=== PATIENT | male | born 1960 | race Caucasian/White ===

== ENCOUNTER 2016-08-26 13:33 | Outpatient (CLI) | payer OTHER | END 2016-08-26 13:34 | disposition home or self-care (01) | DX: G47.33 Obstructive sleep apnea (adult) (pediatric) (principal) ==

== ENCOUNTER 2017-09-16 10:13 | Outpatient (CLI) | payer OTHER | END 2017-09-16 10:14 | disposition home or self-care (01) | LOC: SC 10:13 | PROVIDERS: ATTEND Internal Medicine Pulmonary Disease | DX: G47.33 Obstructive sleep apnea (adult) (pediatric) (principal) | CPT/HCPCS: 99212; 99213 ==

== ENCOUNTER 2018-09-28 15:43 | Outpatient (CLI) | payer OTHER | END 2018-09-28 15:44 | disposition home or self-care (01) | LOC: SC 15:43 | PROVIDERS: ATTEND Nurse Practitioner Family | DX: G47.33 Obstructive sleep apnea (adult) (pediatric) (principal); G47.00 Insomnia, unspecified | CPT/HCPCS: 99212; 99214 ==

== ENCOUNTER 2019-11-15 15:07 | Outpatient (CLI) | payer OTHER ==
--- NOTE | 2019-11-15 16:01 | SLEEP CARE CONSULTATION ---
Information from patient questionnaire entered by Karlene Mosquera. I have reviewed and concur with the information entered by Karlene Mosquera. This document represents the service I personally performed and the decisions made by me, Raimundo Plata MD, [facility]. History of Present Illness Service Date and Time: 11/15/2019 1507 Previous diagnosis: Mild, Obstructive Sleep Apnea-Hypopnea Syndrome AHI: 11 (in 2006) Reason for follow up: annual (last seen 2018) Equipment type: CPAP Equipment obtained from: [employer] Mask style: Nasal Mask brand: Respironics Prior sleep studies: Yes Year and Where: 2006 - [facility] in [place], [place] Type of Sleep Study: Polysomnography HPI additional information: Mr. Finn is here for an annual follow up of the CPAP therapy. He continues to use his autoCPAP every night and all night. He has perfect compliance. He wears a Respironics DreamWear nasal cushion mask. He gets his supplies from [employer]. He is comfortable with the pressure. He reports significant improvement on the treatment. He would like a traveling unit for trips. CPAP Compliance Data - Data Reviewed with Patient Average duration of nightly device use: 5.2 Compliance rate %: 99.4 (180 days) Current pressure setting (cmH2O): 7-10 Humidity settin Heated hose settin Average residual AHI: 2.4 Average large leak: 12 sec Subjective Patient concerns: reports: nasal congestion Initial [place] Sleepiness Scale score: 0 (in 2016) Current [place] Sleepiness Scale score: 3 Allergies and Home Medications Drug allergies reviewed: Yes Home medication list reviewed: Yes Physical Exam Vital signs obtained and entered by: deferred due to the COVID-19 pandemic Height: 5 ft 8 in Impression and Plan IMPRESSION: 1. Obstructive Sleep Apnea-Hypopnea Syndrome, mild, with the patient doing well on nasal CPAP therapy. He has excellent compliance and significant clinical improvement. The current pressure appears effective and comfortable. His mask fits well. Overall, he is very satisfied with treatment and plans to continue with it long-term. No adjustment is necessary today. PLAN: 1. Continue with autoCPAP set at 7 - 10 cmH2O. 2. Try to lose weight 3. Try ResMed N30i mask 4. Prescription made for a traveling CPAP set at the same pressure range. 4. Return in one year for follow up or earlier if there is any problem with the treatment. Visit Type: In Office Time Spent with Patient (minutes): 15 Provider Statement: I spent 100% of the Face to Face Visit with the patient with greater than 50% spent counseling the patient and coordination of care.
== END 2019-11-15 15:08 | disposition home or self-care (01) ==
LOC: SC 15:07
PROVIDERS: ATTEND Internal Medicine Pulmonary Disease
DX: G47.33 Obstructive sleep apnea (adult) (pediatric) (principal)
CPT/HCPCS: 99212; 99213

== ENCOUNTER 2020-05-01 13:17 | Outpatient (CLI) | payer OTHER ==
[2020-05-01] MEDS ORDERED: GADOBUTROL 7.5 MMOL/7.5 ML VIAL ONE (13:38)
[2020-05-01] MEDS ORDERED: BUFFERED LIDOCAINE 10 ML SYRINGE ONE (13:38)
[2020-05-01] MEDS ORDERED: BUFFERED LIDOCAINE 10 ML SYRINGE IU ONE (14:59)
[2020-05-01] MEDS ORDERED: iohexoL-240 10 ML VIAL IVP ONE (15:02)
[2020-05-01] MEDS ORDERED: GADOBUTROL 7.5 MMOL/7.5 ML VIAL IVP ONE (15:03)
--- NOTE | 2020-05-01 16:41 | XRAY Report ---
PROCEDURE: Arthrogram Needle Placement INDICATIONS: IMCOMPLETE ROTATOR CUFF TEAR OR RUPTURE LT SH CONTRAST: CONTRAST: Omipaque 2cc, FLUOROSCOPY TIME: FLUORO TIME: 14 sec and NUMBER IMAGES: 3 TECHNIQUE: The indications, alternatives, benefits, risks, and complications of the procedure were explained to the patient. Written informed consent was obtained and placed in the chart. The shoulder was examin ed fluoroscopically and a site for needle placement chosen for entry into the glenohumeral joint from an anterior approach. The skin was prepped and draped in the usual fashion, and 1% lidocaine infilt rated from skin down to joint capsule. A spinal needle was inserted into the glenohumeral joint, and a small amount of iodinated contrast media injected to confirm intra-articular placement of the need le tip. This was followed by approximately 12 mL dilute solution of a gadolinium containing MR contr ast agent. The needle was removed and a dressing was applied. The patient was given postprocedural instructions and sent to the MR suite for MR imaging. FINDINGS: A single fluoroscopic spot image demonstrates intra-articular location of injected iodinated contrast . IMPRESSION: Successful fluoroscopically guided administration of dilute Gadolinium solution into the shoulder corinna nt for MR arthrogram. Reviewed by: Zahraa Babcock MD on 05/01/2020 4:40 PM PST Approved by: Zahraa Babcock MD on 05/01/2020 4:40 PM PST Station ID: [id number]
--- NOTE | 2020-05-01 17:01 | MRI Report ---
PROCEDURE: Arthrogram Shoulder LT INDICATIONS: IMCOMPLETE ROTATOR CUFF TEAR OR RUPTURE LT SH CONTRAST: 12 mL of diluted intra-articular contrast TECHNIQUE: After the administration of 12 mL of dilute intra-articular Gadolinium contrast, oblique coronal T1 a nd T2 spin echo with fat saturation, oblique sagittal T1 spin echo with and without fat saturation, o blique sagittal T2 fast spin echo with fat saturation, axial T1 spin echo with fat saturation through the shoulder. COMPARISON: None. FINDINGS: Image quality: Excellent. Rotator cuff: There is full-thickness rupture of distal supraspinatus at its insertion on humeral hea d with up to 3.3 cm medial retraction of torn tendon fibers to the level of acromion. Tendinosis and moderate grade articular surface partial-thickness tear involving distal infraspinatus is seen. Dista l subscapularis tendon is grossly intact.. Mild to moderate supraspinatus muscle atrophy is seen on s agittal images. Bones and bursae: No bone marrow contusions or fractures. Moderate acromioclavicular joint osteoarth ritic changes are noted.. The acromion demonstrates conventional anatomy, without an os acromiale. Capsule and soft tissues: The labrum and glenohumeral ligaments appear intact. The long head of the biceps tendinosis and moderate grade partial-thickness tear is seen. The rotator interval appears n ormal, without fibrosis. The coracohumeral ligament is of normal thickness. No intra-articular bodi es. IMPRESSION: 1. Full-thickness rupture of distal supraspinatus at its insertion on humeral head with up to 3.3 cm medial retraction of torn tendon fibers to the level of acromion. Mild to moderate supraspinatus musc le atrophy. 2. Tendinosis and moderate grade articular surface partial-thickness tear involving distal infraspina tus. 3. Moderate acromioclavicular joint osteoarthritis and mild to moderate glenohumeral joint osteoarthr itis. 4. No gross focal labral tear. 5. Tendinosis and moderate grade partial-thickness tear involving intra-articular portion of proximal long head of biceps tendon. Reviewed by: Shola Barry MD on 05/01/2020 4:00 PM [place] Approved by: Shola Barry MD on 05/01/2020 4:00 PM [place] Station ID: [id number]
== END 2020-05-01 13:18 | disposition home or self-care (01) ==
LOC: DI 13:17
PROVIDERS: ATTEND Orthopaedic Surgery
DX: M75.112 Incomplete rotator cuff tear or rupture of left shoulder, not specified as traumatic (principal); M19.012 Primary osteoarthritis, left shoulder; S46.112A Strain of muscle, fascia and tendon of long head of biceps, left arm, initial encounter
CPT/HCPCS: 23350; 73222; 77002; A9585; Q9966

== ENCOUNTER 2020-11-05 18:23 | Emergency (ER) | payer OTHER ==
--- OUTSIDE RECORDS SUMMARY | 2020-11-05 18:25 | EXTERNAL MEDICAL SUMMARY RPT | Continuity of Care Document ---
:1960 Demographics Phone Unavailable Preferred Language Comoran Marital Status Unknown Rastafari Affiliation Unknown Race Unknown Ethnic Group Unknown Author Organization [place] Address [address] [phone] Phone Care Team Providers Name Role Phone Estelle Unavailable Unavailable Arnie Unavailable Unavailable Allergies Encounters Medications date description facility 20201101 Pravastatin Sodium 20 MG Oral Tablet I [facility] 20201101 Hydrochlorothiazide 12.5 MG Oral Tablet [facility] 20201101 telmisartan 40 MG Oral Tablet [facility] ospital Problems date description facility 20201030 Encounter for preprocedural laboratory examination [facility] 20201030 Contact with and (suspected) exposure t o COVID-19 [facility] Procedures date description facility 20201101 [facility] 20201030 [facility] 20201030 [facility] Results Vital Signs date measurement value source 20201101 weight_standard 224.98 lb 20201101 weight_metric 102.05 kg 20201101 temperature_standard 98.6 F 20201101 temperature_metric 37 C 20201101 respiration_rate 14 /min 20201101 height_standard 67 in 20201101 height_metric 170.18 cm 20201101 heart_rate 76 /min 20201101 BP_systolic 114 mm[Hg] 20201101 BP_diastolic 74 mm[Hg] 20201101 BMI 35.2 kg/m2
--- OUTSIDE RECORDS SUMMARY | 2020-11-05 18:58 | EXTERNAL MEDICAL SUMMARY RPT | Continuity of Care Document ---
:1960 Demographics Phone Unavailable Preferred Language Gabonese Marital Status Unknown Evangelical Affiliation Unknown Race Unknown Ethnic Group Unknown Author Organization [place] Address [address] [phone] Phone Care Team Providers Name Role Phone Bro Mccabe Unavailable Unavailable Jitendra Gaitan Unavailable Unavailable Allergies Encounters Medications date description facility 20201101 Pravastatin Sodium 20 MG Oral Tablet [facility] 20201101 Hydrochlorothiazide 12.5 MG Oral Tablet [facility] 20201101 telmisartan [address] [facility] ospital Problems date description facility 20201030 Encounter for preprocedural laboratory examination [facility] 20201030 Contact with and (suspected) exposure t o [facility] [place] [address] Procedures date description facility 20201101 [facility] 20201030 [facility] 20201030 [facility] Results Vital Signs date measurement value source 20201101 weight_standard 224.98 lb 20201101 weight_metric 102.05 kg 20201101 temperature_standard 98.6 F 20201101 temperature_metric 37 C 20201101 respiration_rate 14 /min 20201101 height_standard 67 in 20201101 height_metric 170.18 cm 20201101 heart_rate 76 /min 20201101 BP_systolic 114 mm[Hg] 20201101 BP_diastolic 74 mm[Hg] 20201101 BMI 35.2 kg/m2
[2020-11-05] MEDS ORDERED: TETANUS/DIPHTHERIA/PERTUSSIS 0.5 ML SYRINGE IM ONE (19:14)
--- NOTE | 2020-11-05 19:17 | ED Physician Documentation ---
History of Present Illness - Stated complaint Stated Complaint: LEFT ANKLE INJURY - Chief complaint Chief Complaint: Laceration - Additonal information Additional information: 60-year-old male presents to the emergency department for evaluation of a puncture wound on his left lower leg. He was walking in his garage and accidentally impaled himself on a tapered drill bit that he walked into that was attached to a mobile drill. He reports that it bled quite heavily which is why he came to the ER. Last tetanus nearly 8 to 10 years ago. Review of Systems Constitutional: reports: Reviewed and negative Ears: reports: Reviewed and negative Nose: reports: Reviewed and negative Throat: reports: Reviewed and negative Cardiac: reports: Reviewed and negative Respiratory: reports: Reviewed and negative GI: reports: Reviewed and negative : reports: Reviewed and negative Skin: reports: Other (Puncture wound left lower leg) Musculoskeletal: reports: Reviewed and negative PD PAST MEDICAL HISTORY - Past Medical History Cardiovascular: Hypertension, High cholesterol - Past Surgical History Past Surgical History: No Ortho: ACL reconstruction - Present Medications Home Medications: Ambulatory Orders Medication Instructions Recorded Confirmed Pravastatin Sodium 20 mg DAILY 06/03/15 11/05/20 Telmisartan [Micardis] 40 mg DAILY 06/03/15 11/05/20 Aspirin [Turner Aspirin] 81 mg PO DAILY 11/05/20 11/05/20 Fluticasone [Flonase] 1 spray BALDO DAILY 11/05/20 11/05/20 hydroCHLOROthiazide [Hydrodiuril] 12.5 mg PO DAILY 11/05/20 11/05/20 - Allergies Allergies/Adverse Reactions: Allergies Allergy/AdvReac Type Severity Reaction Status Date / Time morphine AdvReac Nausea Verified 11/05/20 18:30 - Social History Does the pt smoke?: No Smoking Status: Never smoker Does the pt drink ETOH?: Yes Does the pt have substance abuse?: No PD ED PE EXPANDED - General General: Alert, No acute distress - Extremities Extremities: Left leg (Puncture wound left lower anterior leg approximately 4 cm proximal to the lateral malleolus. No surrounding erythema. No active bleeding. Normal gait.) Results - Vitals Vitals: Vital Signs - 24 hr 11/05/20 18:26 Temperature 36.7 C Heart Rate 96 Respiratory 16 Rate Blood Pressure 119/74 O2 Saturation 96 Oxygen O2 Source Room air PD MEDICAL DECISION MAKING - ED course Complexity details: d/w patient ED course: 60-year-old male presents emergency department with a puncture wound to the left lower anterior leg sustained when he impaled his leg on a tapered drill bit in his garage. It bled quite heavily which is why he presented to the ER but by the time he is here now it has stopped. The puncture wound was thoroughly irrigated with 500 mils of sterile saline and bacitracin applied to the wound. Tetanus was updated today. Routine wound care and return precautions were discussed for concerns of infection. Departure - Departure Disposition: 01 Home, Self Care Clinical Impression: Puncture wound Condition: Stable Record reviewed to determine appropriate education?: Yes Instructions: First Aid Punctures Comments: Tyrone hill are seen in the ER today for a puncture wound sustained when you accidentally impaled herself on a tapered drill bit. At the time that you pre sented to the ER the bleeding had stopped. Because your tetanus was almost 10 years old we did update it today in the ER. In general puncture wounds are not closed. They do carry a higher risk of i nfection. It is okay for you to shower normally but do not bathe or submerge your leg in pool hot tub myers or ocean water until this is healed. It is okay to place any antibiotic ointment over the puncture wound and a simple Band-Aid. Please continue to monitor for signs of infection such as fevers, redness red streaking swelling increased pain or milky drainage. If this occurs return to the ER immediately for a second look. I do recommend that you take Tylenol or ibuprofen [id number] for discomfort.
[2020-11-05 19:28] VITALS: BP 122/76
== END 2020-11-05 19:28 | disposition home or self-care (01) ==
LOC: ED 18:23
DX: S81.832A Puncture wound without foreign body, left lower leg, initial encounter (principal); W26.8XXA Contact with other sharp object(s), not elsewhere classified, initial encounter; Y93.01 Activity, walking, marching and hiking; Y92.008 Other place in unspecified non-institutional (private) residence as the place of occurrence of the external cause; Z23 Encounter for immunization; I10 Essential (primary) hypertension; Z79.82 Long term (current) use of aspirin
CPT/HCPCS: 90471; 99282; 99283

== ENCOUNTER 2020-11-06 15:11 | Outpatient (CLI) | payer OTHER ==
--- NOTE | 2020-11-06 16:26 | SLEEP CARE CONSULTATION ---
Information from patient questionnaire entered by Karlene Mosquera. I have reviewed and concur with the information entered by Karlene Mosquera. This document represents the service I personally performed and the decisions made by me, Raimundo Plata MD, [facility]. History of Present Illness Service Date and Time: 11/06/2020 1511 Previous diagnosis: Mild, Obstructive Sleep Apnea-Hypopnea Syndrome AHI: 11 (in 2006) Reason for follow up: annual (last seen 10/2019) Equipment type: CPAP Equipment obtained from: [employer] Mask style: Nasal Prior sleep studies: Yes Year and Where: 2006 - [facility] in [place], [place] HPI additional information: HPI: Mr. Finn was diagnosed to have mild obstructive sleep apnea-hypopnea syndrome and returns today for annual follow up of CPAP therapy. The patient purchased the device from [employer] and was fitted with a Respironics DreamWear nasal cushion mask. He uses the device nightly and all through the night. The compliance report shows that he uses the device 179 nights out of the past 180 nights, averaging 5 hours a night. He complains of broken humidifier latch but no particular problem with the device such as soreness on the face, dry nose, epistaxis, nasal congestion or headache. He thinks that the pressure of 7 - 10 cmH2O is comfortable. On the CPAP therapy he notices improvement in his sleep quality, and that he wakes up feeling fresher in the morning and more awake/alert during the day. His notices no snore at all. [place] Sleepiness Scale score is 4. The average residual AHI is 2.8; and average time in large leak per day is 18 seconds a night. The 90th percentile pressure is 9.1 cmH2O. CPAP Compliance Data - Data Reviewed with Patient Average duration of nightly device use: 4 hr 58 min Compliance rate %: 98.9 (180 days) Current pressure setting (cmH2O): 7-10 Humidity settin Heated hose settin Average residual AHI: 2.8 Average large leak: 18 sec Subjective Patient concerns: reports: other (latch for water chamber is broken) Current pressure setting perceived as: comfortable Initial [place] Sleepiness Scale score: 0 (in 2016) Current [place] Sleepiness Scale score: 4 Allergies and Home Medications Drug allergies reviewed: Yes Home medication list reviewed: Yes Review of Systems Review of systems same as previous: Yes Physical Exam Height: 5 ft 8 in Weight: 235 lb Body Mass Index: 35.7 BMI Classification: Obese Impression and Plan IMPRESSION: 1. Obstructive Sleep Apnea-Hypopnea Syndrome, mild, with the patient continuing to do well on nasal CPAP therapy. He has excellent compliance and significant clinical benefits. The current pressure appears effective and comfortable. Overall, he is very satisfied with treatment and plans to continue with it long-term. Because the CPAP is now older than the useful life of 5 years and it is broken, I will order the patient a new one and make it an autoCPAP set between 7 and 10 cmH2O. PLAN: 1. Continue with autoCPAP set at 7 - 10 cm H2O. 2. Try to lose weight 3. Prescription made for an autoCPAP, heated humidifier, and related supplies. 4. Return for follow up after one month of using the new CPAP. Counseling Topics: Weight control Follow up with Sleep Care in: 1-2 months Visit Type: In Office Time Spent with Patient (minutes): 15 Provider Statement: I spent 100% of the Face to Face Visit with the patient with greater than 50% spent counseling the patient and coordination of care.
== END 2020-11-06 15:12 | disposition home or self-care (01) ==
LOC: SC 15:11
PROVIDERS: ATTEND Internal Medicine Pulmonary Disease
DX: G47.33 Obstructive sleep apnea (adult) (pediatric) (principal); E66.9 Obesity, unspecified; Z68.35 Body mass index [BMI] 35.0-35.9, adult
CPT/HCPCS: 99212

== ENCOUNTER 2021-12-03 15:05 | Outpatient (CLI) | payer OTHER ==
[2021-12-03 15:45] VITALS: BP 134/80
--- NOTE | 2021-12-03 15:45 | SLEEP CARE CONSULTATION ---
Information from patient questionnaire entered by Jonah Grijalva. I have reviewed and concur with the information entered by Jonah Grijalva. This document represents the service I personally performed and the decisions made by me, Raimundo Plata MD, [facility]. History of Present Illness Service Date and Time: 12/03/2021 1505 Previous diagnosis: Mild, Obstructive Sleep Apnea-Hypopnea Syndrome AHI: 11 (in 2006) Reason for follow up: annual (ANNUAL, LAST SEEN 10/2020, DREAMSTATION ) Equipment type: CPAP Equipment obtained from: [employer] Mask style: Nasal Prior sleep studies: Yes Year and Where: 2006 - [facility] in [place], [place] HPI additional information: Mr. Finn returned today for follow up of nasal CPAP therapy. He was diagnosed to have mild obstructive sleep apnea-hypopnea syndrome. The patient gets his supplies from [employer]. He wears a Respironics DreamWear nasal cushion mask. He reports using the [employer]ics DreamStation 2 nightly and all through the night. The compliance data show usage in 353 nights out of the past 365 nights, averaging 5.1 hours a night. He complained of no particular problem with the device such as soreness on the face, dry nose, epistaxis, nasal congestion or headache. He thinks that the pressure of 7 - 10 cmH2O is comfortable. On the CPAP therapy he notices improvement in his sleep quality, and that he wakes up feeling fresher in the morning and more awake/alert during the day. The [place] Sleepiness Scale score 6. His notices no snore at all. The average residual AHI is 3.0; and air leak, 0 L/min. The 90th percentile pressure is 7 cmH2O. Sleep Study - Results Prior sleep studies: Yes Year and Where: 2006 - [facility] in [place], [place] Subjective Initial [place] Sleepiness Scale score: 0 (in 2016) Current [place] Sleepiness Scale score: 6 (12/03/21) Allergies and Home Medications Drug allergies reviewed: Yes Home medication list reviewed: Yes Allergy and home medication list: Allergies morphine Adverse Reaction (Verified 11/05/20 18:30) Nausea Review of Systems Review of systems same as previous: Yes Physical Exam Vital signs obtained and entered by: SAROJ, [employer] Blood Pressure: 134/80 (left arm ) Cuff size: regular Heart Rate: 87 O2 Saturation: 96 Height: 5 ft 8 in Weight: 235 lb Body Mass Index: 35.7 BMI Classification: Obese Impression and Plan IMPRESSION: 1. Obstructive Sleep Apnea-Hypopnea Syndrome, mild, with the patient doing well on nasal CPAP therapy. He has excellent compliance and significant clinical improvement. The current pressure appears effective and comfortable. Overall, he is very satisfied with treatment and plans to continue with it long- term. No adjustment is necessary today. The [employer]. I told him to check with [employer] because he is probably still awaiting a replacement machine. PLAN: 1. Continue with autoCPAP set between 7 and 10 cmH2O. 2. Return in one year for follow up or earlier if there is any problem with the treatment. Follow up with Sleep Care in: 1 year Visit Type: In Office Time Spent with Patient (minutes): 20 Provider Statement: I spent 100% of the Face to Face Visit with the patient with greater than 50% spent counseling the patient and coordination of care.
== END 2021-12-03 15:06 | disposition home or self-care (01) ==
LOC: SC 15:05
PROVIDERS: ATTEND Internal Medicine Pulmonary Disease
DX: G47.33 Obstructive sleep apnea (adult) (pediatric) (principal); E66.9 Obesity, unspecified; Z68.35 Body mass index [BMI] 35.0-35.9, adult
CPT/HCPCS: 99212; 99213

== ENCOUNTER 2023-06-02 10:48 | Outpatient (CLI) | payer MEDICARE, OTHER ==
[2023-06-02 12:35] VITALS: BP 172/94; O2SAT 94
--- NOTE | 2023-06-02 12:35 | SLEEP CARE CONSULTATION ---
Information from patient questionnaire entered by Nani Yousif. I have reviewed and concur with the information entered by Nani Yousif. This document represents the service I personally performed and the decisions made by me, Raimundo Plata MD, [facility]. History of Present Illness Service Date and Time: 06/02/2023 1048 Previous diagnosis: Mild, Obstructive Sleep Apnea-Hypopnea Syndrome AHI: 11 (in 2006) Reason for follow up: annual (LAST SEEN11/2021) Equipment type: CPAP Equipment obtained from: [employer] Mask style: Nasal Prior sleep studies: Yes Year and Where: 2006 - [facility] in [facility] additional information: Mr. Finn was diagnosed to have mild obstructive sleep apnea-hypopnea syndrome and returns today for annual follow up of CPAP therapy. The patient purchased the device from [employer] and was fitted with a Respironics DreamWear nasal cushion mask. He uses the device nightly and all through the night. The compliance report shows that he uses the device 159 nights out of the past 180 nights, averaging 5.2 hours a night. His CPAP broke on 05/09/23. He said the Respironics DreamStation 2 quit in the middle of the night. He is back using his old Dreamstation 1 but its water reservoir is broken. He thinks that the pressure of 7 - 10 cmH2O is comfortable. On the CPAP therapy he notices improvement in his sleep quality, and that he wakes up feeling fresher in the morning and more awake/alert during the day. His notices no snore at all. [place] Sleepiness Scale score is 4. The average residual AHI is 2.2; and average time in large leak per day is 0 seconds a night. The 90th percentile pressure is 8.9 cmH2O. Sleep Study - Results Prior sleep studies: Yes Year and Where: 2006 - [facility] in [place], [place] CPAP Compliance Data - Data Reviewed with Patient Average duration of nightly device use: 5HRS 16MINS 20SECS Compliance rate %: 98.1 (05/10/22-05/09/23) Current pressure setting (cmH2O): 7-10 Average residual AHI: 2.6 Subjective Initial [place] Sleepiness Scale score: 0 (in 2016) Current [place] Sleepiness Scale score: 5 (06/02/23) Allergies and Home Medications Drug allergies reviewed: Yes Home medication list reviewed: Yes Allergy and home medication list: Allergies morphine Adverse Reaction (Verified 05/29/23 14:53) Nausea Review of Systems Review of systems same as previous: Yes (NO CHANGE) Physical Exam Vital signs obtained and entered by: NANI Alvares MA Blood Pressure: 172/94 (LEFT ARM) Cuff size: regular Heart Rate: 100 O2 Saturation: 94 Height: 5 ft 8 in Weight: 238 lb 3.2 oz Body Mass Index: 36.2 BMI Classification: Obese Impression and Plan IMPRESSION: 1. Obstructive Sleep Apnea-Hypopnea Syndrome, mild, with the patient continuing to use his machine regularly. The current pressure setting appears effective and comfortable. His Pritesh Respironics DreamStation 2 appears broken. Because his original Dremstation 1 is older than 5 years, he is eligible or a new on his newly acquired Medicare. However, his sleep study was performed 15 years ago at [facility] and the report is no longer available. The patient says he can get a machine from the [facility]. PLAN: 1. Continue with autoCPAP set at 7 - 10 cm H2O. 2. Prescription made for a new machine through the [facility] system. 3. Consider a new in-laboratory polysomnography if he wants to get a new machine and supplies through Medicare. 4. Return for a follow up in a year or earlier if there is any problem. Prescriptions: Auto CPAP Follow up with Sleep Care in: 1 year Visit Type: In Office Time Spent with Patient (minutes): 15 Provider Statement: I spent 100% of the Face to Face Visit with the patient with greater than 50% spent counseling the patient and coordination of care.
== END 2023-06-02 10:49 | disposition home or self-care (01) ==
LOC: SC 10:48
PROVIDERS: ATTEND Internal Medicine Pulmonary Disease
DX: G47.33 Obstructive sleep apnea (adult) (pediatric) (principal); E66.9 Obesity, unspecified; Z68.36 Body mass index [BMI] 36.0-36.9, adult
CPT/HCPCS: 99212; G0463